=== PATIENT | female | born 1965 | race Caucasian/White ===

== ENCOUNTER 2019-10-05 14:35 | Emergency (ER) | payer BC ==
[~2019-10-05] VITALS: Ht 157.5 cm; Wt 56.4 kg
[2019-10-05 14:50] VITALS: Ht 157.5 cm; Wt 56.4 kg
[2019-10-05 16:52] LABS: BASOPHILS 1.6 % (0-2); EOSINOPHILS 3.7 % (0-7); HEMATOCRIT 35.7 % (36.0-48.0); HEMOGLOBIN 12.4 g/dL (12-16); IMMATURE GRANULOCYTES 0.3 % (0-5); LYMPHOCYTES 49.5 % (15-50); MCH 32.7 pg (26.0-34.0); MCHC 34.7 g/dL (31.0-37.0); MCV 94.2 fL (80.0-100.0); MONOCYTES 8.6 % (2-11); NEUTROPHILS 36.3 % (40-80); PLATELET COUNT 297 10x3/uL (130-400); RBC 3.79 10x6/uL (4.00-5.40); RDW 13.6 % (11.5-14.5); WBC 3.7 10x3/uL (4.8-10.8)
[2019-10-05 17:01] LABS: CALC OSMOLALITY 278 mosm/kg (275-300); CALCIUM 9.1 mg/dL (8.5-10.1); CARBON DIOXIDE 24.1 mmol/L (21.0-32.0); CHLORIDE - SERUM 105 mmol/L (98-107); CREATININE - SERUM 0.8 mg/dL (0.6-1.3); GLUCOSE 82 mg/dL (74-106); POTASSIUM - SERUM 3.7 mmol/L (3.5-5.1); SODIUM 141 mmol/L (136-145); UREA NITROGEN 11 mg/dL (7-18); eGFR NON AFRICAN AMERICAN 79 mL/min (90-120)
[2019-10-05 17:07] LABS: ALBUMIN 4.5 g/dL (3.4-5.0); ALKALINE PHOSPHATASE 74 U/L (30-120); ALT (SGPT) 37 U/L (10-68); BILIRUBIN - TOTAL 0.41 mg/dL (0.2-1.3); PROTEIN - SERUM 8.2 g/dL (6.4-8.2)
[2019-10-05 17:15] LABS: BILIRUBIN NEGATIVE (NEGATIVE); GLUCOSE NEGATIVE (NEGATIVE); KETONE NEGATIVE (NEGATIVE); NITRITE NEGATIVE (NEGATIVE); SPECIFIC GRAVITY 1.015 (1.005-1.020); UROBILINOGEN NORMAL (NORMAL)
[2019-10-05 18:21] VITALS: BP 128/76
== END 2019-10-05 18:10 | disposition home or self-care (01) ==
LOC: D.ER 14:35
PROVIDERS: Family Medicine
DX: R05 Cough (principal); R06.02 Shortness of breath; R49.0 Dysphonia